=== PATIENT | female | born 1975 | race African-American/Black ===

== ENCOUNTER 2022-02-09 09:03 | Day surgery (SDC) | payer OTHER ==
[2022-02-05 16:49] VITALS: BMI 34.5
[2022-02-09] MEDS ORDERED: PROPOFOL 40 ML ONE (10:04)
[2022-02-09 14:18] VITALS: RESP 17
[2022-02-09 14:22] VITALS: BP 100/68; PULSE 88; TEMP 97.4
== END 2022-02-09 11:30 | disposition home or self-care (01) ==
LOC: FASU-ENDO 09:03
PROVIDERS: ATTEND Internal Medicine Gastroenterology
PROC: 0DBN8ZX Excision of Sigmoid Colon, Via Natural or Artificial Opening Endoscopic, Diagnostic (ICD-10-PCS; principal; 2022-02-09 10:34)
DX: Z12.11 Encounter for screening for malignant neoplasm of colon (principal); K63.5 Polyp of colon
CPT/HCPCS: 82962; 84703; 88305-TC